=== PATIENT | male | born 1985 | race Caucasian/White ===

== ENCOUNTER 2017-05-27 08:36 | Emergency (ER) | payer BC ==
[2017-05-27] MEDS ORDERED: Sodium Chloride 0.9% 1,000 ML IV ONE (08:57)
[2017-05-27] MEDS ORDERED: Ketorolac 30 MG/ML SDV IVPUSH ONE (08:57)
[2017-05-27] MEDS ORDERED: Ondansetron 4 MG/2 ML SDV IVPUSH ONE (08:57)
[2017-05-27] MEDS ORDERED: Albuterol/Ipratropium 3.0-0.5 MG/3 ML Neb Soln NEB ONE (09:25)
--- NOTE | 2017-05-27 10:06 | CR ---
EXAMINATION: Portable chest radiograph. HISTORY: Fever. FINDINGS: The trachea is midline. The cardiomediastinal silhouette is within normal limits. No pulmonary infilt rates, effusions or pneumothorax. Osseous structures appear unremarkable. IMPRESSION: No acute cardiopulmonary process.
[2017-05-27 10:16] LABS: CHLORIDE,CL 99 mmol/L (98-107); SODIUM,NA 134 mmol/L (136-148)
[2017-05-27] MEDS ORDERED: Levofloxacin 500 MG Tab PO ONE (11:05)
--- NOTE | 2017-05-27 11:11 | EDM.PDOC ---
ED HPI GENERAL MEDICAL PROBLEM - General Chief Complaint: Fever Stated Complaint: FEVER,MIGRAINE Time Seen by Provider: 05/27/17 11:09 Source of Information: Reports: Patient - History of Present Illness INITIAL COMMENTS - FREE TEXT/NARRATIVE: HISTORY AND PHYSICAL: History of present illness: [Patient presents with headache and dizziness which has developed over the last several days, has nasal congestion sinus pain and tenderness subjective fever no nausea vomiting chills sweats no chest pain shortness breath or palpitation no bowel or urine symptoms Patient noted to be diaphoretic on arrival ] Review of systems: As per history of present illness and below otherwise all systems reviewed and negative. Past medical history: As per history of present illness and as reviewed below otherwise noncontributory. Surgical history: As per history of present illness and as reviewed below otherwise noncontributory. Social history: No reported history of drug or alcohol abuse. Family history: As per history of present illness and as reviewed below otherwise noncontributory. Physical exam: HEENT: Atraumatic, normocephalic, pupils reactive, negative for conjunctival pallor or scleral icterus, mucous membranes moist, throat clear, neck supple, nontender, trachea midline. Tympanic membranes clear sinus tenderness right greater than left maxillary sinuses as well as supraorbital sinus involvement Lungs: Clear to auscultation, breath sounds equal bilaterally, chest nontender. Heart: S1S2, regular, negative for clicks, rubs, or JVD. Abdomen: Soft, nondistended, nontender. Negative for masses or hepatosplenomegaly. Negative for costovertebral tenderness. Pelvis: Stable nontender. Genitourinary: Deferred. Rectal: Deferred. Extremities: Atraumatic, negative for cords or calf pain. Neurovascular unremarkable. Neuro: Awake, alert, oriented. Cranial nerves II through XII unremarkable. Cerebellum unremarkable. Motor and sensory unremarkable throughout. Exam nonfocal. Diagnostics: [CBC CMP troponin influenza Chest 1 view EKG ] Therapeutics: [Levaquin 500 mg by mouth now and daily #10 no refill ] Impression: [Acute sinusitis] Definitive disposition and diagnosis as appropriate pending reevaluation and review of above. 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 (see below) Other Treatments ELECTRONICS ENGINEERING PROFESSOR: beatriz seltzer fever Headache Pain Score (Numeric/FACES): 6 - Related Data Allergies Allergy/AdvReac Type Severity Reaction Status Date / Time aspirin Allergy Cannot Verified 05/27/17 09:05 Remember codeine Allergy Cannot Verified 05/27/17 09:05 Remember Penicillins Allergy Cannot Verified 05/27/17 09:05 Remember phenobarbital Allergy Cannot Verified 05/27/17 09:05 Remember phenytoin [From Dilantin] Allergy Cannot Verified 05/27/17 09:05 Remember trolamine salicylate Allergy Other Verified 05/27/17 09:05 [From Asper-Flex] Home Meds: Home Meds Escitalopram [Lexapro] 20 mg DAILY 05/27/17 [History] carBAMazepine [Tegretol] 400 mg BID 05/27/17 [History] Past Medical History HEENT History: Reports: None Cardiovascular History: Reports: None Respiratory History: Reports: None Gastrointestinal History: Reports: None Genitourinary History: Reports: None Musculoskeletal History: Reports: None Neurological History: Reports: Seizure Psychiatric History: Reports: Depression, Emotional Problems, Other (See Below) Other Psychiatric History: anger Endocrine/Metabolic History: Reports: Obesity/BMI 30+ Hematologic History: Reports: None Immunologic History: Reports: None - Past Surgical History GI Surgical History: Reports: Appendectomy, Cholecystectomy Social & Family History - Family History Family Medical History: Noncontributory - Tobacco Use Smoking Status *Q: Current Some Day Smoker Years of Tobacco use: 25 Packs/Tins Daily: 0.1 - Caffeine Use Caffeine Use: Reports: Coffee, Soda - Recreational Drug Use Recreational Drug Use: No ED ROS GENERAL - Review of Systems Review Of Systems: ROS reveals no pertinent complaints other than HPI. ED EXAM, GENERAL - Physical Exam Exam: See Below Course - Vital Signs Last Recorded V/S: Last Vital Signs Temp 96.8 F 05/27/17 08:56 Pulse 81 05/27/17 08:56 Resp 18 05/27/17 08:56 BP 119/67 05/27/17 08:56 Pulse Ox 96 05/27/17 08:56 - Orders/Labs/Meds Orders: Active Orders 24 hr Category Date Time Status EKG Documentation Completion [RC] STAT Care 05/27/17 09:26 Active RT Aerosol Therapy [RC] ASDIRECTED Care 05/27/17 09:26 Active CULTURE BLOOD [BC] Stat Lab 05/27/17 10:08 Received CULTURE BLOOD [BC] Stat Lab 05/27/17 10:24 Received Blood Culture x2 Reflex Set [OM.PC] Stat Oth 05/27/17 09:05 Ordered Labs: Laboratory Tests 05/27/17 05/27/17 05/27/17 Range/Units 09:18 09:18 10:06 WBC 5.04 (4.0-11.0) K/uL RBC 4.52 (4.50-5.90) M/uL Hgb 14.0 (13.0-17.0) g/dL Hct 40.2 (38.0-50.0) % MCV 88.9 (80.0-98.0) fL MCH 31.0 (27.0-32.0) pg MCHC 34.8 (31.0-37.0) g/dL RDW Std Deviation 42.3 (28.0-62.0) fl RDW Coeff of Dorota 13 (11.0-15.0) % Plt Count 170 (150-400) K/uL MPV 10.00 (7.40-12.00) fL Neut % (Auto) 58.9 (48.0-80.0) % Lymph % (Auto) 28.4 (16.0-40.0) % Bureau % (Auto) 11.3 (0.0-15.0) % Eos % (Auto) 0.8 (0.0-7.0) % Baso % (Auto) 0.6 (0.0-1.5) % Neut # (Auto) 3.0 (1.4-5.7) K/uL Lymph # (Auto) 1.4 (0.6-2.4) K/uL Bureau # (Auto) 0.6 (0.0-0.8) K/uL Eos # (Auto) 0.0 (0.0-0.7) K/uL Baso # (Auto) 0.0 (0.0-0.1) K/uL Nucleated RBC % 0.0 /100WBC Nucleated RBCs # 0 K/uL Sodium 134 L (136-148) mmol/L Potassium 4.1 (3.5-5.1) mmol/L Chloride 99 (98-107) mmol/L Carbon Dioxide 25.0 (21.0-32.0) mmol/L BUN 13 (7.0-18.0) mg/dL Creatinine 0.8 (0.8-1.3) mg/dL Est Cr Clr Drug Dosing 138.14 mL/min Estimated GFR (MDRD) > 60.0 ml/min Glucose 97 (74-106) mg/dL Calcium 9.0 (8.5-10.1) mg/dL Total Bilirubin 0.2 (0.2-1.0) mg/dL AST 25 (15-37) IU/L ALT 32 (14-63) IU/L Alkaline Phosphatase 76 (46-116) U/L Total Protein 7.6 (6.4-8.2) g/dL Albumin 3.3 L (3.4-5.0) g/dL Globulin 4.3 H (2.0-3.5) g/dL Albumin/Globulin Ratio 0.8 L (1.3-2.8) Urine Color YELLOW Urine Appearance CLEAR Urine pH 5.5 (5.0-8.0) Ur Specific [place] 1.020 (1.001-1.035) Urine Protein 30 (NEGATIVE) mg/dL Urine Glucose (UA) NEGATIVE (NEGATIVE) mg/dL Urine Ketones TRACE H (NEGATIVE) mg/dL Urine Occult Blood LARGE H (NEGATIVE) Urine Nitrite NEGATIVE (NEGATIVE) Urine Bilirubin SMALL H (NEGATIVE) Urine Ictotest NEGATIVE Urine Urobilinogen 0.2 (<2.0) EU/dL Ur Leukocyte Esterase NEGATIVE (NEGATIVE) Urine RBC 30-35 (0-2/HPF) Urine WBC 2-5 (0-5/HPF) Ur Epithelial Cells RARE (NONE-FEW) Urine Bacteria 1+ H (NEGATIVE) Urine Mucus LIGHT (NONE-MOD) Meds: Medications Discontinued Medications Generic Name Dose Route Start Last Admin Trade Name Bhaveshq PRN Reason Stop Dose Admin Albuterol/Ipratropium 3 ml 05/27/17 09:25 05/27/17 09:42 Duoneb 3.0-0.5 Mg/3 Ml NEB 05/27/17 09:26 3 ml ONETIME ONE Administration Sodium Chloride 1,000 mls @ 999 mls/hr 05/27/17 08:57 05/27/17 09:43 Normal Saline IV 05/27/17 09:57 999 mls/hr STAT ONE Administration Ketorolac Tromethamine 30 mg 05/27/17 08:57 05/27/17 09:42 Toradol IVPUSH 05/27/17 08:58 30 mg ONETIME ONE Administration Levofloxacin 500 mg 05/27/17 11:05 05/27/17 11:22 Levaquin PO 05/27/17 11:06 500 mg ONETIME ONE Administration Ondansetron HCl 8 mg 05/27/17 08:57 05/27/17 09:43 Zofran IVPUSH 05/27/17 08:58 8 mg ONETIME ONE Administration Departure - Departure Time of Disposition: 11:23 Disposition: Home, Self-Care 01 Condition: Good Clinical Impression: Sinusitis - Discharge Information Referrals: PCP,Unknown [Primary Care Provider] - Forms: ED Department Discharge Additional Instructions: Medication as prescribed [id number] symptomatic therapy is discussed Return if symptoms persist or worsen or new concerning symptoms develop Follow-up with primary care in 2 weeks [facility] - [facility] [address] [place] [id number] The following information is given to patients seen in the emergency department who are being discharged to home. This information is to outline your options for follow-up care. We provide all patients seen in our emergency department with a follow-up referral. The need for follow-up, as well as the timing and circumstances, are variable depending upon the specifics of your emergency department visit. If you don't have a primary care physician on staff, we will provide you with a referral. We always advise you to contact your personal physician following an emergency department visit to inform them of the circumstance of the visit and for follow-up with them and/or the need for any referrals to a consulting specialist. The emergency department will also refer you to a specialist when appropriate. This referral assures that you have the opportunity for follow-up care with a specialist. All of these measure are taken in an effort to provide you with optimal care, which includes your follow-up. Under all circumstances we always encourage you to contact your private physician who remains a resource for coordinating your care. When calling for follow-up care, please make the office aware that this follow-up is from your recent emergency room visit. If for any reason you are refused follow-up, please contact the [facility] emergency department at and asked to speak to the emergency department charge nurse. - My Orders Last 24 Hours: My Active Orders 05/27/17 09:05 Blood Culture x2 Reflex Set [OM.PC] Stat 05/27/17 09:26 EKG Documentation Completion [RC] STAT RT Aerosol Therapy [RC] ASDIRECTED 05/27/17 10:08 CULTURE BLOOD [BC] Stat 05/27/17 10:24 CULTURE BLOOD [BC] Stat - Assessment/Plan Last 24 Hours: My Active Orders 05/27/17 09:05 Blood Culture x2 Reflex Set [OM.PC] Stat 05/27/17 09:26 EKG Documentation Completion [RC] STAT RT Aerosol Therapy [RC] ASDIRECTED 05/27/17 10:08 CULTURE BLOOD [BC] Stat 05/27/17 10:24 CULTURE BLOOD [BC] Stat
== END 2017-05-27 11:37 | disposition home or self-care (01) ==
LOC: MW.ED 08:36
DX: J01.90 Acute sinusitis, unspecified (principal); Z88.5 Allergy status to narcotic agent; Z88.0 Allergy status to penicillin; Z79.899 Other long term (current) drug therapy; F17.210 Nicotine dependence, cigarettes, uncomplicated
CPT/HCPCS: 36415; 71045; 80053; 81001; 85025; 87040; 87804; 93005; 94640; 96361; 96374; 96375; 99284; A9270; J1885; J2405; J7040; 99283

== ENCOUNTER 2017-07-17 21:14 | Emergency (ER) | payer BC ==
--- NOTE | 2017-07-17 22:53 | EDM.PDOC ---
ED HPI GENERAL MEDICAL PROBLEM - General Chief Complaint: Lower Extremity Injury/Pain Stated Complaint: PAIN RT ANKLE Time Seen by Provider: 07/17/17 22:51 Source of Information: Reports: Patient - History of Present Illness INITIAL COMMENTS - FREE TEXT/NARRATIVE: HISTORY AND PHYSICAL: History of present illness: [Patient rolled his right ankle this morning complains of 8 out of 10 pain unable to bear weight due to pain no fever nausea vomiting chills sweats denies other injury ] Review of systems: As per history of present illness and below otherwise all systems reviewed and negative. Past medical history: As per history of present illness and as reviewed below otherwise noncontributory. Surgical history: As per history of present illness and as reviewed below otherwise noncontributory. Social history: No reported history of drug or alcohol abuse. Family history: As per history of present illness and as reviewed below otherwise noncontributory. Physical exam: HEENT: Atraumatic, normocephalic, pupils reactive, negative for conjunctival pallor or scleral icterus, mucous membranes moist, throat clear, neck supple, nontender, trachea midline. Lungs: Clear to auscultation, breath sounds equal bilaterally, chest nontender. Heart: S1S2, regular, negative for clicks, rubs, or JVD. Abdomen: Soft, nondistended, nontender. Negative for masses or hepatosplenomegaly. Negative for costovertebral tenderness. Pelvis: Stable nontender. Genitourinary: Deferred. Rectal: Deferred. Extremities: Atraumatic, negative for cords or calf pain. Neurovascular unremarkable. Right lower extremity unaffected above the ankle there is bruising over the lateral malleolus and exquisitely tender to touch no redness warmth or exudate no open lesion entirely limb neurovascularly intact Neuro: Awake, alert, oriented. Cranial nerves II through XII unremarkable. Cerebellum unremarkable. Motor and sensory unremarkable throughout. Exam nonfocal. Diagnostics: [Right ankle 3 views ] Therapeutics: [ CAM boot crutches nonweightbearing Follow-up with fourth toe Rest ice ibuprofen ] Impression: [ right ankle injury ] Definitive disposition and diagnosis as appropriate pending reevaluation and review of above. 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 (see below) Other Treatments NURSING PROFESSOR: ice right ankle Pain Score (Numeric/FACES): 8 - Related Data Allergies Allergy/AdvReac Type Severity Reaction Status Date / Time aspirin Allergy Cannot Verified 05/27/17 09:05 Remember codeine Allergy Cannot Verified 05/27/17 09:05 Remember Penicillins Allergy Cannot Verified 05/27/17 09:05 Remember phenobarbital Allergy Cannot Verified 05/27/17 09:05 Remember phenytoin [From Dilantin] Allergy Cannot Verified 05/27/17 09:05 Remember trolamine salicylate Allergy Other Verified 05/27/17 09:05 [From Asper-Flex] Home Meds: Home Meds Escitalopram [Lexapro] 20 mg DAILY 05/27/17 [History] carBAMazepine [Tegretol] 400 mg BID 05/27/17 [History] Past Medical History HEENT History: Reports: None Cardiovascular History: Reports: None Respiratory History: Reports: None Gastrointestinal History: Reports: None Genitourinary History: Reports: None Musculoskeletal History: Reports: None Neurological History: Reports: Seizure Psychiatric History: Reports: Depression, Emotional Problems, Other (See Below) Other Psychiatric History: anger Endocrine/Metabolic History: Reports: Obesity/BMI 30+ Hematologic History: Reports: None Immunologic History: Reports: None - Past Surgical History GI Surgical History: Reports: Appendectomy, Cholecystectomy Social & Family History - Family History Family Medical History: Noncontributory - Caffeine Use Caffeine Use: Reports: Coffee, Soda Review of Systems - Review of Systems Review Of Systems: ROS reveals no pertinent complaints other than HPI. ED EXAM, GENERAL - Physical Exam Exam: See Below Course - Vital Signs Last Recorded V/S: Last Vital Signs Temp 98.5 F 07/17/17 21:41 Pulse 84 07/17/17 21:41 Resp 18 07/17/17 21:41 BP 110/65 07/17/17 21:41 Pulse Ox 96 07/17/17 21:41 - Orders/Labs/Meds Orders: Active Orders 24 hr Category Date Time Status Ankle Min 3V Rt [CR] Stat Exams 07/17/17 21:40 Taken Departure - Departure Time of Disposition: 22:52 Disposition: Home, Self-Care 01 Condition: Good Clinical Impression: Right ankle injury - Discharge Information Referrals: PCP,None [Primary Care Provider] - Additional Instructions: Cam boot crutches nonweightbearing Rest Ice 20 minute intervals 3 times daily as needed Ibuprofen 400 mg 3 times daily 7-10 daYS Follow-up with orthopedist, call number below to schedule appropriate follow-up [facility] [address], [address] [place] [address] my orthopedic The following information is given to patients seen in the emergency department who are being discharged to home. This information is to outline your options for follow-up care. We provide all patients seen in our emergency department with a follow-up referral. The need for follow-up, as well as the timing and circumstances, are variable depending upon the specifics of your emergency department visit. If you don't have a primary care physician on staff, we will provide you with a referral. We always advise you to contact your personal physician following an emergency department visit to inform them of the circumstance of the visit and for follow-up with them and/or the need for any referrals to a consulting specialist. The emergency department will also refer you to a specialist when appropriate. This referral assures that you have the opportunity for follow-up care with a specialist. All of these measure are taken in an effort to provide you with optimal care, which includes your follow-up. Under all circumstances we always encourage you to contact your private physician who remains a resource for coordinating your care. When calling for follow-up care, please make the office aware that this follow-up is from your recent emergency room visit. If for any reason you are refused follow-up, please contact the [facility] emergency department at and asked to speak to the emergency department charge nurse. - My Orders Last 24 Hours: My Active Orders 07/17/17 21:40 Ankle Min 3V Rt [CR] Stat - Assessment/Plan Last 24 Hours: My Active Orders 07/17/17 21:40 Ankle Min 3V Rt [CR] Stat
--- NOTE | 2017-07-18 13:00 | CR ---
EXAM DATE: 07/17/17 PATIENT'S AGE: 31 Patient: SALEEM LUNA Facility: [place], [place] Site . Site : 1985 Study: XRay Extremity Right ankle [id number]/16/2018 10:28:19 PM Ordering Physician: Doctor Cee Final Report: Indication: Injury Technique: Three views right ankle Comparison: None Findings: Bones: Alignment is normal. No fractures or bone lesions. There is a small posterior calcaneal enthesophyte. Joint spaces: Unremarkable. Soft tissues: Unremarkable. Impression: Negative. Dictated by Christine Hughes MD @ Jul 17 2017 10:37PM (Electronic Signature) Report Signed by Proxy. ERICKSON
== END 2017-07-17 23:15 | disposition home or self-care (01) ==
LOC: MW.ED 21:14
DX: S90.01XA Contusion of right ankle, initial encounter (principal); F32.9 Major depressive disorder, single episode, unspecified; E66.9 Obesity, unspecified; Z88.5 Allergy status to narcotic agent; Z88.0 Allergy status to penicillin; Z88.8 Allergy status to other drugs, medicaments and biological substances; Z88.6 Allergy status to analgesic agent; Z79.899 Other long term (current) drug therapy; X58.XXXA Exposure to other specified factors, initial encounter
CPT/HCPCS: 73610-26-RT; 73610-RT; 99283

== ENCOUNTER 2017-07-26 12:40 | Emergency (ER) | payer BC ==
--- NOTE | 2017-07-26 13:36 | EDM.PDOC ---
ED HPI GENERAL MEDICAL PROBLEM - General Chief Complaint: Upper Extremity Injury/Pain Stated Complaint: RIGHT ARM SWOLLEN AND PAINFUL Time Seen by Provider: 07/26/17 12:47 Source of Information: Reports: Patient, Old Records, Significant Other History Limitations: Reports: No Limitations - History of Present Illness INITIAL COMMENTS - FREE TEXT/NARRATIVE: HISTORY AND PHYSICAL: []31-year-old male presenting with right forearm pain and right ankle pain History of Present Illness: []Patient was seen this morning at [facility], for his sudden onset of right forearm pain. He then describes what sounds like a panic attack her to being seen. He is to get a cup of coffee in the back of a truck when this pain began. Pain was stated as a severe burning type of pain he had full range of motion no tingling he tried nothing for the symptoms no history of any trauma to this extremity. Patient was dissatisfied with the treatment in [place] and came to this emergency room in [place]. Secondly patient is complaining of continued pain to his right ankle for which he was seen by Dr. Cervantes in the emergency room here. A week ago the patient had a rolled his right ankle and was evaluated with x- rays and noted. His past surgical history includes anxiety carpal tunnel syndrome seizures appendectomy cholecystectomy he is currently a smoker every day for the last 35 years recently has a weight loss from 350 pounds to 132.2 kg Patient admits to being more anxious as to worried about what his family will do if he is unable to work. Review of Systems: As per history of present illness and below otherwise all systems reviewed and negative. Past medical history: As per history of present illness and as reviewed below otherwise noncontributory. Surgical history: As per history of present illness and as reviewed below otherwise noncontributory. Social history: No reported history of drug or alcohol abuse. Family history: As per history of present illness and as reviewed below otherwise noncontributory. Physical exam: Alert and oriented ,pleasant gentleman who answers questions appropriately in full sentences without any shortness of breath he is afebrile heart rate is 70. Blood pressure 120s over 70s. is at bedside. HEENT: Atraumatic, normocehpalic, pupils reactive, negative for conjunctival pallor or scleral icterus, mucous membranes moist, throat clear, neck supple, nontender, trachea midline. Lungs: Clear to auscultation, breath sounds equal bilaterally, chest non tender. Heart: S1S2, regular, negative for clicks, rubs, or JVD. Abdomen: Soft, nondistended, nontender. Negative for masses or hepatossplenmegaly. Negative for costovertebral tenderness. Pelvis: Stable nontender. Genitourinary: Deferred. Rectal: Deferred Extremities: Edema is noted around circling the lateral malleolus. Tenderness with palpation. Pedal pulses are easily palpable. The most as noted to the third second toe. Full range of motion is present over increased pain with flexion and extension., negative for cords or calf pain. Neurovascular unremarkable. Neuro: Awake, alert, oriented. Cranial nerves II through XII unremarkable. Cerebellum unremarkable. Motor and sensory unremarkable throughout. Exam nonfocal. Labratory values from [facility] have been reviewed WBC 5.7 RBC 4.25 hemoglobin is 13.2 hematocrit of 37.8 glucose is 100 nightly 24 BUN/ creatinine ratio is 32.4 potassium 4.0. Discussion has taken place with the patient of his negative findings. Patient has removed a polyurethane brace from his right ankle. This was extremely tight and difficult for him to remove. Causing increased pain. Discussed with the patient the laboratory values from [facility] and they x-ray report from here no other gross abnormalities were noted Patient declined use of rome wrap. Diagnostics: []xray rt ankle Therapeutics: [] Impression: []minor pain to rt forearm panic attack rt ankle pain Plan: []Discharged to home Do not have the brace that you have it is too tight Ibuprofen 800 mg 3 times a day for the next week Elevate and ice Attention emergency department as directed and discussed Definitive disposition and diagnosis as appropriate pending reevaluation and review of above. Onset: Today, Sudden Duration: Hour(s):, Resolved Prior to Arrival Location: Reports: Upper Extremity, Right Quality: Reports: Ache, Burning Severity: Mild (3-4/10) Improves with: Reports: None Worsens with: Reports: None Associated Symptoms: Reports: No Other Symptoms Right forearm Pain Score (Numeric/FACES): 4 - Related Data Allergies Allergy/AdvReac Type Severity Reaction Status Date / Time aspirin Allergy Cannot Verified 05/27/17 09:05 Remember codeine Allergy Cannot Verified 05/27/17 09:05 Remember Penicillins Allergy Cannot Verified 05/27/17 09:05 Remember phenobarbital Allergy Cannot Verified 05/27/17 09:05 Remember phenytoin [From Dilantin] Allergy Cannot Verified 05/27/17 09:05 Remember trolamine salicylate Allergy Other Verified 05/27/17 09:05 [From Asper-Flex] Home Meds: Home Meds Escitalopram [Lexapro] 20 mg DAILY 05/27/17 [History] carBAMazepine [Tegretol] 400 mg BID 05/27/17 [History] Past Medical History HEENT History: Reports: None Cardiovascular History: Reports: None Respiratory History: Reports: None Gastrointestinal History: Reports: None Genitourinary History: Reports: None Musculoskeletal History: Reports: None Neurological History: Reports: Seizure Psychiatric History: Reports: Depression, Emotional Problems, Other (See Below) Other Psychiatric History: anger Endocrine/Metabolic History: Reports: Obesity/BMI 30+ Hematologic History: Reports: None Immunologic History: Reports: None Dermatologic History: Reports: None - Past Surgical History GI Surgical History: Reports: Appendectomy, Cholecystectomy Social & Family History - Family History Family Medical History: Noncontributory - Caffeine Use Caffeine Use: Reports: Coffee, Soda Review of Systems - Review of Systems Review Of Systems: ROS reveals no pertinent complaints other than HPI. ED EXAM, GENERAL - Physical Exam Exam: See Below (see dictation) Course - Vital Signs Last Recorded V/S: Last Vital Signs Temp 36.8 C 07/26/17 12:45 Pulse 82 07/26/17 12:45 Resp 16 07/26/17 12:45 BP 120/72 07/26/17 12:45 Pulse Ox 97 07/26/17 12:45 Departure - Departure Time of Disposition: 13:59 Disposition: Home, Self-Care 01 Condition: Good Clinical Impression: Right forearm pain Ankle pain, right Qualifiers: Chronicity: acute Qualified Code(s): M25.571 - Pain in right ankle and joints of right foot - Discharge Information Instructions: Ankle Pain Referrals: PCP,None [Primary Care Provider] - Forms: ED Department Discharge Additional Instructions: The following information is given to patients seen in the emergency department who are being discharged to home. This information is to outline your options for follow-up care. We provide all patients seen in our emergency department with a follow-up referral. The need for follow-up, as well as the timing and circumstances, are variable depending upon the specifics of your emergency department visit. If you don't have a primary care physician on staff, we will provide you with a referral. We always advise you to contact your personal physician following an emergency department visit to inform them of the circumstance of the visit and for follow-up with them and/or the need for any referrals to a consulting specialist. The emergency department will also refer you to a specialist when appropriate. This referral assures that you have the opportunity for followup care with a specialist. All of these measure are taken in an effort to provide you with optimal care, which includes your followup. Under all circumstances we always encourage you to contact your private physician who remains a resource for coordinating your care. When calling for followup care, please make the office aware that this follow-up is from your recent emergency room visit. If for any reason you are refused follow-up, please contact the [facility] emergency department at and asked to speak to the emergency department charge nurse. I do not have a reason for your right forearm pain This is resolving when you came here Your ankle pain is being worsened by the brace that was too tight Rome wrap has been offered which you have declined Follow-up with your primary care
--- NOTE | 2017-07-26 13:50 | CR ---
EXAMINATION: Right ankle HISTORY: Pain COMPARISON: 07/17/2017 TECHNIQUE: 3 views FINDINGS/IMPRESSION: Mild soft tissue swelling surrounding the right ankle without a definite acute o sseous abnormality or fracture. Bone mineralization and ankle mortise appear normal.
== END 2017-07-26 14:14 | disposition home or self-care (01) ==
LOC: MW.ED 12:40
DX: M79.631 Pain in right forearm (principal); M25.571 Pain in right ankle and joints of right foot; F41.0 Panic disorder [episodic paroxysmal anxiety]; Z88.6 Allergy status to analgesic agent; Z88.5 Allergy status to narcotic agent; Z88.0 Allergy status to penicillin; Z88.8 Allergy status to other drugs, medicaments and biological substances; Z79.899 Other long term (current) drug therapy
CPT/HCPCS: 73610-26-RT; 73610-RT; 99283

== ENCOUNTER 2023-12-18 06:47 | Emergency (ER) | payer SELFPAY ==
[2023-12-18] MEDS: Cetirizine 10 MG Tab PO ONE (07:20)
[2023-12-18] MEDS: predniSONE 20 MG Tab PO ONE (07:23)
== END 2023-12-18 08:47 | disposition home or self-care (01) ==
LOC: MW.ED 06:47
DX: T63.441A Toxic effect of venom of bees, accidental (unintentional), initial encounter (principal); E66.9 Obesity, unspecified; Z90.49 Acquired absence of other specified parts of digestive tract; Z79.899 Other long term (current) drug therapy; Z88.5 Allergy status to narcotic agent; Z88.0 Allergy status to penicillin; Z88.8 Allergy status to other drugs, medicaments and biological substances; Z88.2 Allergy status to sulfonamides; Z75.8 Other problems related to medical facilities and other health care; Z68.41 Body mass index [BMI] 40.0-44.9, adult
CPT/HCPCS: 99283; A9270